=== PATIENT | male | born 1990 | race Two or more races ===

== ENCOUNTER 2020-10-12 13:38 | Emergency (ER) | payer OTHER, SELFPAY ==
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
[2020-10-12 13:42] VITALS: PULSE 121; RESP 20; O2SAT 100; BMI 29.5
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
[2020-10-12] MEDS: iohexoL 350 MG/ML 100 ML INFUS..BTL IV (13:56)
[2020-10-12] MEDS: Piperacillin Sodium/Tazobactam 3.375 GM in 0.9 % Sodium Chloride 50 ML IV (14:01)
[2020-10-12] MEDS: 0.9 % Sodium Chloride 1,000 ML 999 ML IVCONT ×2 (14:02→14:09)
[2020-10-12] MEDS: Diphth,Pertus(ACell),Tet Adult 0.5 ML SYRINGE IM (14:03)
[2020-10-12 14:05] LABS: MANUAL DIFF FLAG NO
[2020-10-12 14:06] LABS: Basophils Percent Auto 0.6 % (0-2); Eosinophils Absolute Auto 0.1 X10*3/uL (0.0-0.4); Eosinophils Percent Auto 1.1 % (0-4); Hematocrit 44.1 % (42-52); Hemoglobin 15.2 g/dl (14.0-18.0); Imm Gran Abs Auto 0.03 X10*3/uL (0.00-0.03); Imm Gran Pct Auto 0.5 % (0.0-0.4); Lymphocytes Absolute Auto 2.7 X10*3/uL (1.2-4.9); Lymphocytes Percent Auto 41.1 % (20-40); Mean Corpuscular HGB Conc 34.5 g/dl (31.0-36.0); Mean Corpuscular Volume 84.2 fL (80-98); Mean Platelet Volume 9.3 fL (9.4-12.4); Monocytes Absolute Auto 0.6 X10*3/uL (0.1-1.2); Monocytes Percent Auto 8.4 % (2-11); Neutrophils Absolute Auto 3.2 X10*3/uL (2.0-8.3); Neutrophils Percent Auto 48.3 % (45-73); Platelet Count 224 X10*3/uL (160-400); Red Blood Count 5.24 X10*6/uL (4.60-5.80); White Blood Count 6.6 X10*3/uL (4.8-10.8)
[2020-10-12 14:10] VITALS: BP 174/84; PULSE 100; RESP 18; O2SAT 98
[2020-10-12 14:12] LABS: Prothrombin Time 11.4 SEC (10.8-13.0)
[2020-10-12 14:14] LABS: Partial Thromboplastin Time 30.2 SEC (24.1-38.0)
--- NOTE | 2020-10-12 14:14 | PC.NURSE ---
@[phone] DICKSON TO PLACE CALL TO [facility] PT TRANSFER LINE FOR TRAUMA TRANSFER AKILAH ANSWERS, TAKES PT IN AND CALL BACK NUMBER THEN ASKS TO SPEAK WITH DR RANDOLPH DICKSON TAKES OVR CALL RIGHT AWAY @ [phone] RETURN CALL RECEIVED FROM [facility] PT TX LINE, DR DICKSON ANSWERS THIS CALL, DR GUTIERREZ ACCEPTING @ [phone] CALL OUT TO [facility] FOR ALS STAT TRANSFER TO [facility] TRAUMA ER
--- NOTE | 2020-10-12 14:15 | PC.NURSE ---
rn to rn report given
--- NOTE | 2020-10-12 14:17 | PC.NURSE ---
[facility] HERE @ THIS TIME
[2020-10-12 14:21] LABS: COVID-19 Test Negative (Negative)
[2020-10-12 14:25] LABS: Lactic Acid 4.3 mmol/L (0.5-2.0)
[2020-10-12 14:26] LABS: Anion Gap 15 (12-20); Blood Urea Nitrogen 9 mg/dL (9-16); Calcium 8.8 mg/dL (8.4-10.2); Carbon Dioxide 22 mmol/L (22-29); Chloride 105 mmol/L (96-108); Creatinine Clr Calc Pharmacy 124.1; Estimated Glomerular Filt Rate > 60; Glucose Random 125 mg/dL (60-115); Potassium 3.8 mmol/L (3.3-5.1); Sodium 138 mmol/L (135-145)
[2020-10-12 14:37] LABS: Alanine Aminotransferase 54 U/L (0-40); Albumin Level 4.4 g/dL (3.5-5.0); Alkaline Phosphatase 74 U/L (39-117); Aspartate Amino Transferase 19 U/L (5-37); Bilirubin Direct 0.2 mg/dL (0.0-0.5); Bilirubin Total 0.6 mg/dL (0.0-1.0); Magnesium 1.9 mg/dL (1.6-2.6); Total Protein 6.8 g/dL (6.5-8.0)
[2020-10-12 14:45] LABS: Lipase 163 U/L (8-78)
[2020-10-12 16:02] LABS: Reflex Lactate? Lactic Acid Added
== END 2020-10-12 14:29 | disposition short-term general hospital (02) ==
PROVIDERS: Emergency Provider Emergency Medicine
DX: S31.113A Laceration without foreign body of abdominal wall, right lower quadrant without penetration into peritoneal cavity, initial encounter (principal); X99.1XXA Assault by knife, initial encounter; Y93.9 Activity, unspecified; Y92.9 Unspecified place or not applicable; Y99.9 Unspecified external cause status; Z20.822 Contact with and (suspected) exposure to COVID-19
CPT/HCPCS: 36415; 74177; 80048; 80076; 83605; 83690; 83735; 85025; 85610; 85730; 87635; 90471; 90715; 96361; 96365; 99285; 99291; J2543; Q9967

== ENCOUNTER 2024-05-23 00:58 | Emergency (ER) | payer OTHER, SELFPAY ==
--- NOTE | ~2024-05-23 | XR_ITS ---
CLINICAL HISTORY: injury 3 view left elbow Comparison: None Findings: No acute fractures. Normal alignment. No joint effusion. No radiopaque foreign body. IMPRESSION: 1. No acute fracture or dislocation injury identified at the left elbow. This document has been electronically signed by: Andres June MD on 05/23/2024 02:32:19
[2024-05-23 01:10] VITALS: BP 144/94; PULSE 79; RESP 16; TEMP 37.3; O2SAT 98; BMI 28.1
[2024-05-23] MEDS: Ibuprofen 600 MG TABLET PO (01:15)
== END 2024-05-23 02:42 | disposition left against medical advice (07) ==
PROVIDERS: Emergency Provider Emergency Medicine
DX: M25.522 Pain in left elbow (principal); S59.902A Unspecified injury of left elbow, initial encounter; W10.8XXA Fall (on) (from) other stairs and steps, initial encounter; Y93.9 Activity, unspecified; Y92.9 Unspecified place or not applicable; Y99.9 Unspecified external cause status; Z53.21 Procedure and treatment not carried out due to patient leaving prior to being seen by health care provider
CPT/HCPCS: 73080; 99281; 99282; 99283

== ENCOUNTER → 2024-05-23 01:53 | Outpatient (BNV) | payer SELFPAY | PROVIDERS: Emergency Provider Emergency Medicine; Visit Provider Radiology Diagnostic Radiology | DX: S59.902A Unspecified injury of left elbow, initial encounter (principal) | CPT/HCPCS: 73080 ==